=== PATIENT | female | born 1950 | race Caucasian/White ===

== ENCOUNTER 2018-06-30 19:46 | Emergency (ER) | payer OTHER ==
[~2018-06-30] VITALS: Ht 165.1 cm; Wt 158.8 kg
[~2018-06-30 19:46] MED LIST: AUGMENTIN 875875 M1 PO; B-12 DOTS500 MCG; BENAZEPRIL HCL10 MG; CALCIUM 600 +1 EAC1; CHERATUSSIN DA480 ML PO; CIPRO500 MG PO; COLESTID1 GM; DARVOCET-N 1001 EAC1 PO; EVENING PRIMRO500 MG; FLONASE 0.05%50 MCG NASAL; HYDROCHLOROTHIA25 M2; HYDROCODONE-AP1 EAC6 PO; LEG CRAMPS PO; LEVOTHYROXINE0.05 MG; LIPITOR 20 MG T20 M1 PO; LIPITOR20 MG PO; LISINOPRIL10 MG PO; LOPID600 MG; LOSARTAN POTASS50 MG PO; NORCO 5-325 TA1 EACH PO; NORFLEX100 MG PO; OMEGA-31000 MG; OMEPRAZOLE40 MG PO; ONDANSETRON HCL4 M2 PO; PANTOPRAZOLE SO40 M1 PO; PHENERGAN 25 MG25 MG PO; POTASSIUM20; RONDEC-DM SYRU120 ML PO; SCOPOLAMINE1 EACH TRANSDERM; SINEMET 25/1001 TA1; VITAMIN D2400 UNIT; VITAMINC500; VITAMINC500 PO; VOLTAREN100 GM; XOPENEX HFA15 GM; ZPAK PO
[2018-06-30 20:46] LABS: URINE BILIRUBIN NEGATIVE (Negative); URINE BLOOD NEGATIVE (Negative); URINE CLARITY SL CLOUDY; URINE COLOR YELLOW; URINE GLUCOSE-RANDOM* NEGATIVE (Negative); URINE KETONES NEGATIVE (Negative); URINE LEUKOCYTES-REFLEX TRACE (Negative); URINE NITRITE-REFLEX NEGATIVE (Negative); URINE PROTEIN (DIPSTICK) NEGATIVE (Negative); URINE SPECIFIC GRAVITY 1.025 (1.005-1.035); URINE UROBILINOGEN 0.2 E.U./dl (0.2-1.0)
[2018-06-30 21:05] LABS: BACTERIA-REFLEX 1-9 Few /HPF (None Seen); CASTS None Seen /LPF (None Seen); CRYSTALS None Seen /LPF (None Seen); MUCUS 0-3 Light strn/LPF (None Seen); SQUAMOUS 4-10 Moderate /LPF (0-3); URINE RBC 0-2 Rare /HPF (0-2); URINE WBC-REFLEX 6-15 Few /HPF (0-5)
[2018-06-30] MEDS ORDERED: NORFLEX100 MG PO (21:15)
[2018-06-30] MEDS ORDERED: MOBIC7.5 MG PO (21:15)
[2018-06-30 21:35] VITALS: BP 161/78
== END 2018-06-30 21:35 | disposition home or self-care (01) ==
LOC: ER 19:46
PROVIDERS: Physician Assistant
DX: S39.012A Strain of muscle, fascia and tendon of lower back, initial encounter (principal); I10 Essential (primary) hypertension; E78.00 Pure hypercholesterolemia, unspecified; E03.9 Hypothyroidism, unspecified; E78.5 Hyperlipidemia, unspecified; Z88.8 Allergy status to other drugs, medicaments and biological substances; Z90.49 Acquired absence of other specified parts of digestive tract; Z90.710 Acquired absence of both cervix and uterus; Z91.048 Other nonmedicinal substance allergy status; Z88.6 Allergy status to analgesic agent; Z91.041 Radiographic dye allergy status; Z88.5 Allergy status to narcotic agent; X58.XXXA Exposure to other specified factors, initial encounter; Y92.89 Other specified places as the place of occurrence of the external cause; Y93.89 Activity, other specified; Y99.8 Other external cause status

== ENCOUNTER 2018-07-14 16:34 | Emergency (ER) | payer OTHER ==
[~2018-07-14] VITALS: Ht 167.6 cm; Wt 163.3 kg
[~2018-07-14 16:34] MED LIST changes: +MOBIC7.5 MG PO
[2018-07-14 17:54] VITALS: BP 174/97
[2018-07-14 18:40] LABS: URINE BILIRUBIN NEGATIVE (Negative); URINE BLOOD NEGATIVE (Negative); URINE COLOR YELLOW; URINE GLUCOSE-RANDOM* NEGATIVE (Negative); URINE KETONES NEGATIVE (Negative); URINE LEUKOCYTES-REFLEX TRACE (Negative); URINE PROTEIN (DIPSTICK) TRACE (Negative); URINE SPECIFIC GRAVITY 1.015 (1.005-1.035); URINE UROBILINOGEN 0.2 E.U./dl (0.2-1.0)
[2018-07-14 18:41] LABS: URINE NITRITE-REFLEX POSITIVE (Negative)
[2018-07-14 18:42] LABS: URINE CLARITY HAZY
[2018-07-14 18:50] LABS: BACTERIA-REFLEX >30 Many /HPF (None Seen); CASTS None Seen /LPF (None Seen); SQUAMOUS 0-3 Few /LPF (0-3); URINE RBC None Seen /HPF (0-2); URINE WBC-REFLEX >25 Many /HPF (0-5)
[2018-07-14 18:51] LABS: TRIPLE PHOSPHATE CRYSTALS 4-10 Moderate /LPF (None Seen)
[2018-07-14] MEDS ORDERED: MACROBID 100 M100 M1 PO (18:58)
== END 2018-07-14 19:29 | disposition home or self-care (01) ==
LOC: ER 16:34
PROVIDERS: Physician Assistant
DX: N39.0 Urinary tract infection, site not specified (principal); I10 Essential (primary) hypertension; E78.00 Pure hypercholesterolemia, unspecified; E03.9 Hypothyroidism, unspecified; Z90.49 Acquired absence of other specified parts of digestive tract; Z90.710 Acquired absence of both cervix and uterus; Z88.5 Allergy status to narcotic agent; Z88.6 Allergy status to analgesic agent; Z91.041 Radiographic dye allergy status; Z88.8 Allergy status to other drugs, medicaments and biological substances

== ENCOUNTER 2018-07-28 21:28 | Emergency (ER) | payer OTHER ==
[~2018-07-28] VITALS: Ht 165.1 cm; Wt 158.8 kg
[~2018-07-28 21:28] MED LIST changes: +MACROBID 100 M100 M1 PO
[2018-07-28] MEDS ORDERED: ALEVE220 MG PO (21:48)
[2018-07-28] MEDS ORDERED: TYLENOL EXTRA500 MG PO (21:49)
[2018-07-28] MEDS ORDERED: NYSTATIN15 G2 TOP (21:50)
[2018-07-28] MEDS ORDERED: BACTRIM 400-801 EACH PO (21:50)
[2018-07-28] MEDS ORDERED: VITAMIN E400 UNIT PO (21:51)
[2018-07-28] MEDS ORDERED: UNICOMPLEX M TA1 TA1 PO (21:52)
[2018-07-28] MEDS ORDERED: VITAMIN D31000 UNIT PO (21:52)
[2018-07-28] MEDS ORDERED: EVENING PRIMR1000 MG PO (21:53)
[2018-07-28 23:01] LABS: URINE BILIRUBIN NEGATIVE (Negative); URINE BLOOD NEGATIVE (Negative); URINE CLARITY CLEAR; URINE COLOR YELLOW; URINE GLUCOSE-RANDOM* NEGATIVE (Negative); URINE KETONES TRACE (Negative); URINE PROTEIN (DIPSTICK) 1+ (Negative); URINE UROBILINOGEN 0.2 E.U./dl (0.2-1.0)
[2018-07-28 23:07] LABS: URINE LEUKOCYTES-REFLEX 1+ (Negative); URINE NITRITE-REFLEX POSITIVE (Negative)
[2018-07-28 23:09] LABS: BACTERIA-REFLEX >30 Many /HPF (None Seen); CASTS None Seen /LPF (None Seen); CRYSTALS None Seen /LPF (None Seen); MUCUS 0-3 Light strn/LPF (None Seen); SQUAMOUS >10 Many /LPF (0-3); URINE RBC 3-10 Few /HPF (0-2); URINE WBC-REFLEX >25 Many /HPF (0-5)
[2018-07-28] MEDS ORDERED: KEFLEX500 M1 PO (23:16)
[2018-07-28 23:56] VITALS: BP 171/93
== END 2018-07-29 00:08 | disposition home or self-care (01) ==
LOC: ER 21:28
PROVIDERS: Emergency Medicine
DX: N39.0 Urinary tract infection, site not specified (principal); I10 Essential (primary) hypertension; E78.00 Pure hypercholesterolemia, unspecified; E03.9 Hypothyroidism, unspecified; Z90.49 Acquired absence of other specified parts of digestive tract; Z90.710 Acquired absence of both cervix and uterus; Z88.5 Allergy status to narcotic agent; Z91.041 Radiographic dye allergy status; Z88.8 Allergy status to other drugs, medicaments and biological substances

== ENCOUNTER 2019-03-14 10:27 | Inpatient (IN) | payer OTHER ==
[~2019-03-14] VITALS: Ht 167.6 cm; Wt 177.4 kg
[2019-03-14 10:27] VITALS: BP 152/89
[~2019-03-14 10:27] MED LIST changes: +ALEVE220 MG PO; +BACTRIM 400-801 EACH PO; +EVENING PRIMR1000 MG PO; +KEFLEX500 M1 PO; +NYSTATIN15 G2 TOP; +TYLENOL EXTRA500 MG PO; +UNICOMPLEX M TA1 TA1 PO; +VITAMIN D31000 UNIT PO; +VITAMIN E400 UNIT PO
[2019-03-14 11:19] LABS: HEMOGLOBIN 12.8 gm/dL (12.0-15.0); MCH 29.8 pg (26.0-34.0); MCHC 32.8 g/dL (28.0-37.0); MCV 90.8 fL (80.0-100.0); RBC 4.29 mil/uL (4.20-5.00); WBC 3.7 thou/uL (4.0-11.0)
[2019-03-14 11:30] LABS: ANION GAP 9 mmol/L (7-16); BUN 17 mg/dL (7-18); CHLORIDE 106 mmol/L (98-107); CO2 28 mmol/L (21-32); GLUCOSE 135 mg/dL (74-106); POTASSIUM 3.9 mmol/L (3.5-5.1); SODIUM 143 mmol/L (136-145)
[2019-03-14 11:39] LABS: MAGNESIUM 1.6 mg/dL (1.8-2.4); TROPONIN-I <0.06 ng/mL (<0.06)
[2019-03-14] MEDS ORDERED: COZAAR 25 MG TA25 M1 PO (12:27)
[2019-03-14 13:38] LABS: URINE BILIRUBIN NEGATIVE (Negative); URINE BLOOD NEGATIVE (Negative); URINE CLARITY CLEAR; URINE COLOR YELLOW; URINE GLUCOSE-RANDOM* NEGATIVE (Negative); URINE KETONES NEGATIVE (Negative); URINE LEUKOCYTES-REFLEX NEGATIVE (Negative); URINE NITRITE-REFLEX NEGATIVE (Negative); URINE PROTEIN (DIPSTICK) NEGATIVE (Negative); URINE UROBILINOGEN 0.2 E.U./dl (0.2-1.0)
--- NOTE | 2019-03-14 14:46 | NUR ---
PT UNABLE TO AMBULATE OR GET OOB BY SELF WITH A WALKER
[2019-03-14 17:54] VITALS: BP 169/81
[2019-03-14 18:16] VITALS: BP 147/89
--- NOTE | 2019-03-15 05:25 | NUR ---
ASSUMED CARE OF PT AT 1900. A&Ox4, COOPERATIVE. VS STABLE. SR ON TELE, AFEBRILE. ASSMT COMPLETED, PT ABLE TO ANSWER ALL QUESTIONS. PT STATED AT HOME SHE WAS HAVING NAUSEA WITH VERTIGO. DENIED VERTIGO AND NAUSEA SINCE BEING ON THIS UNIT EVEN WHEN UP TO BSC. UP W/ MODERATE ASSIST TO BSC. PT NEEDED ALOT OF HELP MOVING HER LEGS IN BED. LOW UOP, DARK YELLOW/ORANGE URINE. MAG REPLACED AND NS INFUSING ORDERED RED RASH WITH ODOR UNDER RIGHT BREAST. CONTACTED EDI ARCHITECT, NYSTATIN POWDER ORDERED AND APPLIED. CURRENTLY RESTING. PROGRESSING TOWARDS POC GOALS.
[2019-03-15 05:43] LABS: ABSOLUTE NEUTROPHILS 2.4 thou/uL (1.4-8.2); BASOPHILS 0.4 % (0.0-2.0); EOSINOPHILS 3.3 % (0.0-3.0); HEMATOCRIT 38.9 % (37.0-47.0); HEMOGLOBIN 12.5 gm/dL (12.0-15.0); MCH 29.6 pg (26.0-34.0); MCV 92.7 fL (80.0-100.0); MONOCYTES 8.9 % (1.0-8.0); PLATELET COUNT 136 thou/uL (150-400); POLYS 63.4 % (36.0-66.0); RDW 15.1 % (10.5-14.5); WBC 3.8 thou/uL (4.0-11.0)
[2019-03-15 05:48] VITALS: BP 151/62
[2019-03-15 06:00] LABS: CALCIUM 8.4 mg/dL (8.5-10.1); CREATININE 0.8 mg/dL (0.6-1.0); MAGNESIUM 1.9 mg/dL (1.8-2.4)
[2019-03-15 07:30] VITALS: BP 173/54
--- NOTE | 2019-03-15 13:23 | NUR ---
INITIAL ASSESSMENT: SW reviewed chart and spoke with nursing and attending physician. Pt was admitted from home due to vertigo. Neuro consulted. PT ordered to evaluate pt. SW met with pt at bedside. Introduced role of SW. Pt is alert/orientated x 4. Pt reports she lives at home alone. Prior to admission, pt was independent with ADLs. Pt has a cane and rollator walker to assist with ambulation and gait. Pt has used HH in the past, but unsure of HH agency. Pt has also done outpatient therapy at [facility]. Pt's PCP is Dr. John Daugherty. Plan is for pt to discharge home when medically stable. SW is following to assist as needed with discharge planning.
[2019-03-15] MEDS ORDERED: LEVO-T50 MCG PO (15:32)
--- NOTE | 2019-03-15 17:36 | NUR ---
pt admitted for vertigo at 03/14/19, pt is A&X3, PT'vs are stable, but pt will have vertigo when pt gets up , pt has PT/OT working with her, pt denies n/v and pain at this time, pt has MARTINA done at head , carotid and cirle of burden.
[2019-03-15 20:10] VITALS: BP 146/61
--- NOTE | 2019-03-16 02:42 | NUR ---
ASSUMED CARE FROM DAY SHIFT PT RESTING IN BED ASSESSMENT COMPLETED C/O BACK AND LEG PAIN TYLENOL GIVEN PO , DISCUSSED PLAN OF CARE AND VERBALIZED UNDERSTANDING AND AGREEABLE, UP TO BSC WITH STAND BY ASSIST. RESTING WELL THROUGHOUT HOURLY ROUNDS. NSR ON COST CONTROL SUPERVISOR, WILL CONTINUE WITH CUURRENT PLAN OF CARE.
[2019-03-16 04:26] VITALS: BP 134/54
[2019-03-16 07:50] VITALS: BP 154/56
[2019-03-16] MEDS ORDERED: ANTIVERT25 MG PO (08:15)
--- NOTE | 2019-03-16 10:39 | NUR ---
DISCHARGE PLANNING. PATIENT DISCHARGING TO HOME. HOME HEALTH RECOMMENDED AT DISCHARGE. PATIENT REFERRAL FAXED TO [facility] PER REQUEST. CALL PLACED TO [facility] LIAISON TO NOTIFY. LEEANN TO DO BEDSIDE EVAL WITH PATIENT THIS MORNING. UNIT SW AWARE. FOLLOWING.
--- NOTE | 2019-03-16 12:12 | EKG ---
[address] [address] ELECTROCARDIOGRAM REPORT Name: CLEMENTE CARTWRIGHT Room #: 350-P ADM IN M.R.#: [id number] Admission: 03/14/19 Attend Phys: Des Harmon MD Discharge: Date of : 46 Report #: [id number] THIS REPORT FOR: //name// [facility] ED Test Date: 2019-03-14 Test Time: 10:55:12 Pat Name: CLEMENTE CARTWRIGHT Department: Room: 350 Gender: F Vocational Nurse Lvn: : 1950 Requested By: Herminio Tapia Order Number: [id number] MD: Nima Wilson Measurements Intervals [place] Rate: 74 P: 67 KS: 176 QRS: 1 QRSD: 138 T: 3 QT: 399 QTc: 443 Interpretive Statements Sinus rhythm Right bundle branch block Nonspecific ST segment abnormalities Compared to ECG 07/07/2015 05:17:10 Right bundle-branch block now present T-wave abnormality no longer present Electronically Signed On 03-16-2019 12:12:14 [employer]PERVIS[employer] by Nima Wilson [email or web address] <ELECTRONICALLY SIGNED> By: Nima Wilson MD 03/16/19 1212 [id number] [id number] Nima Wilson MD /DAYA
[2019-03-16 12:26] VITALS: BP 154/56
--- NOTE | 2019-03-16 12:53 | NUR ---
ASSUMED PATIENT ACRE AT 0700. A/O X4. NO DISDRESS NOTED. DC TO HOME WITH HH NOW
--- NOTE | 2019-03-16 13:12 | NUR ---
DISCHARGE NOTE: SW reviewed chart and spoke with nursing and attending physician. Pt is medically stable for discharge home today. Orders written for HH services. SW met with pt at bedside to discuss discharge plan. No preference of HH agency voiced. Pt's family will provide transportation home. liaison planner faxed clinical info and discharge orders/summary to [facility] for review. [facility] is able to accept pt on service. Contact info for [facility] placed in pt's discharge summary. No additional SW needs identified at this time, but is available to assist should needs arise.
== END 2019-03-16 14:07 | disposition home health service (06) | DRG 149 ==
LOC: ER 10:27 → EROBS 17:11 → 3W 17:11 → ENTRNSPT 03-16 13:59 → EDTRNSPTSTS 03-16 14:02 → 3W 03-16 14:07
PROVIDERS: Emergency Medicine; Nurse Practitioner; ADMIT Hospitalist
DX: H81.10 Benign paroxysmal vertigo, unspecified ear (principal); N39.0 Urinary tract infection, site not specified; Z68.44 Body mass index [BMI] 60.0-69.9, adult; E83.42 Hypomagnesemia; D69.6 Thrombocytopenia, unspecified; E66.01 Morbid (severe) obesity due to excess calories; I10 Essential (primary) hypertension; E78.00 Pure hypercholesterolemia, unspecified; E03.9 Hypothyroidism, unspecified; M19.90 Unspecified osteoarthritis, unspecified site; E78.5 Hyperlipidemia, unspecified; Z90.710 Acquired absence of both cervix and uterus; Z90.49 Acquired absence of other specified parts of digestive tract; Z79.899 Other long term (current) drug therapy; Z88.6 Allergy status to analgesic agent; Z88.8 Allergy status to other drugs, medicaments and biological substances; Z91.048 Other nonmedicinal substance allergy status; Z80.8 Family history of malignant neoplasm of other organs or systems
CPT/HCPCS: 10879